=== PATIENT | male | born 1985 | race Two or more races ===

== ENCOUNTER 2022-10-01 07:05 | Emergency (ER) | payer OTHER ==
[~2022-10-01] VITALS: Ht 177.8 cm; Wt 84.8 kg
--- NOTE | 2022-10-01 07:08 | NUR ---
to bed 11
[2022-10-01 07:09] VITALS: BP 131/85
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
--- NOTE | 2022-10-01 07:13 | NUR ---
dr mclean at bedside for exam
--- NOTE | 2022-10-01 07:24 | NUR ---
ASSUMED PATIENT CARE. CONCUR WITH PRIOR ASSESSMENTS.
--- NOTE | 2022-10-01 07:26 | NUR ---
[place] [facility] AT BEDSIDE.
--- NOTE | 2022-10-01 07:39 | NUR ---
TO XRAY VIA [facility].
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
[2022-10-01] MEDS ORDERED: NAPR-1704 PO (08:52)
[2022-10-01 09:03] VITALS: BP 127/65
--- NOTE | 2022-10-01 09:04 | NUR ---
DISPO AND MEDICAL DECISION MAKING DC TO [facility] WITH AFTERCARE INSTRUCTIONS. PATIENT STABLE, VS WNL.
== END 2022-10-01 09:04 ==
LOC: EDBD 07:05 → MED 07:05
DX: S92.321A Displaced fracture of second metatarsal bone, right foot, initial encounter for closed fracture (principal); F10.129 Alcohol abuse with intoxication, unspecified; Z79.899 Other long term (current) drug therapy; Y90.9 Presence of alcohol in blood, level not specified; V49.88XA Car occupant (driver) (passenger) injured in other specified transport accidents, initial encounter; Y93.89 Activity, other specified; Y92.89 Other specified places as the place of occurrence of the external cause; Y99.8 Other external cause status
CPT/HCPCS: 29515; 71045; 72040; 72170; 73630; 99284